=== PATIENT | female | born 2000 | race Two or more races ===

== ENCOUNTER 2022-10-22 16:58 | Inpatient (IN) | payer OTHER ==
[~2022-10-22] VITALS: Ht 162.6 cm; Wt 113.9 kg
[2022-10-22] MEDS ORDERED: PRENATABS RX T1 EACH PO (20:27)
== END 2022-10-24 16:15 | disposition home or self-care (01) | DRG 807 ==
LOC: OB/GYN 16:58 → LDR 16:58 → OB/GYN 20:57
PROVIDERS: ADMIT Obstetrics & Gynecology Obstetrics; ATTEND Obstetrics & Gynecology Obstetrics
PROC: 10E0XZZ Delivery of Products of Conception, External Approach (ICD-10-PCS; principal; 2022-10-22)
PROC: 4A1HXCZ Monitoring of Products of Conception, Cardiac Rate, External Approach (ICD-10-PCS; 2022-10-22)
DX: O80 Encounter for full-term uncomplicated delivery (principal); Z37.0 Single live birth; Z3A.39 39 weeks gestation of pregnancy; Z20.822 Contact with and (suspected) exposure to COVID-19